=== PATIENT | male | born 1945 | race Caucasian/White ===

== ENCOUNTER → 2023-08-03 16:03 | Outpatient (REF) | payer MEDICARE, SELFPAY | LOC: RAD 16:03 | PROVIDERS: ATTENDING PHYSICIAN Internal Medicine | DX: R60.0 Localized edema (principal) | CPT/HCPCS: 93970 ==

== ENCOUNTER → 2023-08-30 13:23 | Outpatient (REF) | payer MEDICARE, SELFPAY | LOC: RAD 13:23 | PROVIDERS: ATTENDING PHYSICIAN Internal Medicine; REFERRING PHYSICIAN Internal Medicine Transplant Hepatology | DX: I73.9 Peripheral vascular disease, unspecified (principal) | CPT/HCPCS: 93922; 93925 ==

== ENCOUNTER → 2023-10-11 13:36 | Outpatient (REF) | payer MEDICARE, SELFPAY | LOC: RAD 13:36 | PROVIDERS: ATTENDING PHYSICIAN Registered Nurse; FAMILY PHYSICIAN Internal Medicine; REFERRING PHYSICIAN Internal Medicine Transplant Hepatology | DX: R60.0 Localized edema (principal) | CPT/HCPCS: 93970 ==

== ENCOUNTER → 2023-12-18 12:30 | Outpatient (REF) | payer MEDICARE, SELFPAY | LOC: PAVMRI 12:30 | PROVIDERS: ATTENDING PHYSICIAN Surgery Vascular Surgery; FAMILY PHYSICIAN Internal Medicine | DX: R60.0 Localized edema (principal); T82.868S Thrombosis due to vascular prosthetic devices, implants and grafts, sequela | CPT/HCPCS: 72198; A9585 ==

== ENCOUNTER → 2024-10-09 13:40 | Outpatient (REF) | payer MEDICARE, SELFPAY | LOC: DHVS 13:40 | PROVIDERS: ATTENDING PHYSICIAN Surgery Vascular Surgery; FAMILY PHYSICIAN Internal Medicine; OTHER PHYSICIAN Internal Medicine Transplant Hepatology | DX: I73.9 Peripheral vascular disease, unspecified (principal) | CPT/HCPCS: 93922; 93925 ==

== ENCOUNTER 2025-03-07 16:14 | Emergency (ER) | payer MEDICARE, SELFPAY ==
[2025-03-07 16:21] VITALS: BP 128/80
[2025-03-07 20:42] VITALS: BP 141/74
--- NOTE | 2025-03-07 20:52 | ED.GENMED ---
History of Present Illness
General
Chief Complaint: DVT/Possible Blood Clot
Source: patient and spouse
Time Seen by Provider: 03/07/25 20:38
History of Present Illness
History of Present Illness:
79-year-old male presents to the emergency room for evaluation of an area of redness and tenderness noted in the right proximal thigh. No other complaints. Patient has a history of a liver transplant in 2022 at [facility]. Patient recently had a
bit of a bump of his liver enzymes after taking a course of Bactrim for suspected cellulitis. His tacrolimus dose was adjusted and his numbers have improved. Patient denies any chest pain or shortness of breath. He has noted some discomfort when
he walks. Patient's is providing the history. She states patient is somewhat confused and unable to provide details.
Past History
Past History
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
ED Past Surgical History: Appendectomy and Cholecystectomy
Social History
Tobacco: Former smoker
Alcohol: None
Drug: None
Personal:
Living: with family
Phy Exam
Physical Exam
Physical Exam:
General: Awake, Alert, Oriented X3. Appears chronically ill
Vitals: unremarkable
Head: Atraumatic
Eyes: Pupils equal, EOMI
Throat: Airway intact, no exudates
Neck: Trachea midline
Lungs: Clear and equal b/l
Heart: Regular rate, no murmurs
Abd: Soft, Nontender, No pulsatile mass
Neuro: Nonfocal
Skin: Warm, dry, no rash
Extremities: pulses equal b/l, chronic lower extremity edema and chronic venous stasis changes. Area of erythema noted in the midportion of the internal thigh. There is a palpable cord in that area.
Course
Orders/Labs/Results
Orders:
Orders
03/07/25 16:22
US Periph Venous LOWER Ext RT Urgent
Comment:
Reason For Exam: redness and swelling to rle
03/07/25 20:54
Complete Blood Count/With Diff Urgent
Comprehensive Metabolic Panel Urgent
03/07/25 22:51
Apixaban [Eliquis] 5 mg PO NOW STA
03/07/25 22:54
Apixaban [Eliquis] 5 mg PO NOW STA
Abnormal Lab Results
03/07/25
20:54
MCV 96.4 H fL
(80.0-94.0)
MCH 33.0 H pg
(27.0-31.0)
Absolute Monos (auto) 0.7 H 10^3/uL
(0.1-0.6)
Lymphocytes % 16.0 L %
(20.5-51.1)
Chloride 108 H mmol/L
(98-107)
BUN 23 H mg/dl
(9-20)
Glucose 131 H mg/dl
(70-99)
ALT 63 H U/L
(0-50)
03/07/25 20:54
03/07/25 20:54
Vital Signs
Initial and Last Documented VS:
Initial Vital Signs
Temp Pulse Resp Pulse Ox
98.4 F 76 18 96
03/07/25 16:20 03/07/25 16:20 03/07/25 16:20 03/07/25 16:20
Last Documented Vital Signs
Temp Pulse Resp BP Pulse Ox
98 F 76 20 132/74 96
03/07/25 23:54 03/07/25 23:54 03/07/25 23:54 03/07/25 23:54 03/07/25 23:54
MDM/Problems Addressed
Differential Diagnosis Includes:
Superficial thrombus, phlebitis, DVT, abscess
MDM/Problems Addressed:
Ultrasound shows the presence of thrombus in the greater saphenous vein 0.5 cm from the venous junction. No other abnormalities noted on ultrasound. Will check the patient's labs including a CBC and LFTs. If labs are reasonable we will start the
patient on Eliquis. Attempted to discussed the plan with the recruiter coordinator however they state the patient is outside of the window for them to be involved at this point. Since
*Radiology
Radiology exam reviewed: radiology read reviewed
*Pulse Oximetry
SaO2: 96
Patient hypoxic: no
*Critical Care Note
Total Time (30-74mins, 75-104mins- exclusive of procedures): Not Applicable
ED Attending Note
-
Portions of this chart may have been created with voice recognition software.� Occasional wrong word or��sound alike� substitutions may have occurred due to the inherent limitations of voice recognition software.
Discharge Plan
Departure
Patient Disposition: Home (Routine Discharge)
Date of Disposition: 03/07/25
Time of Disposition: 22:58
Patient with high blood pressure during this ER visit?: No
Condition: Good
Discharge Problem:
Thrombophlebitis leg superficial
Instructions: Superficial vein phlebitis and thrombosis
Prescriptions:
New
Eliquis 5 mg tablet
5 mg PO BID Qty: 60 0RF
No Action
prednisone 10 MG tablet
10 mg PO DAILY
ursodiol 300 MG capsule
300 mg PO TID
furosemide 20 MG tablet
20 mg PO TID
prednisone 10 MG tablet
5 mg PO QPM
potassium chloride [Klor-Con M20] 20 MEQ tablet,ER particles/crystals
20 meq PO DAILYPRN PRN (Reason: fluid)
bisacodyl 5 MG tablet,delayed release (DR/EC)
5 mg PO DAILYPRN PRN (Reason: constipation)
lactulose 10 GM/15 ML solution
15 gm PO DAILY
spironolactone 25 MG tablet
25 mg PO BID
Referrals:
Ivy, K., MD [Family Provider, Internal Medicine]
Interventions
Interventions:
*Risk Screen - Suicide Last Done: 03/07/25 20:35
*General Assessment Last Done: 03/07/25 21:01
*Neglect/Abuse Screening Last Done: 03/07/25 20:35
*ED- Fall Risk Assessment Last Done: 03/07/25 20:34
*ED COVID-19 Vaccine History Last Done: 03/07/25 20:34
*ED Influenza Vaccine History Last Done: 03/07/25 20:34
*Nursing Disposition Last Done: 03/07/25 23:54
ED- Cardiac Assessment Last Done: 03/07/25 20:55
ED- Pulmonary Assessment Last Done: 03/07/25 20:55
ED-Peripheral Vascular Assessment Last Done: 03/07/25 20:59
ED-Skin Assessment Last Done: 03/07/25 21:00
Discharge Date and Time
Discharge Date/Time: 03/08/25 00:02
Print Language: MALAY
[2025-03-07 21:00] VITALS: BP 137/79
[2025-03-07 21:03] VITALS: BMI 29.7
[2025-03-07 21:14] LABS: Hematocrit 45.6 % (39.0-52.0); Hemoglobin 15.6 g/dL (13.0-18.0); Mean Corp Hgb Conc. 34.2 g/dL (33.0-37.0); Mean Corpuscular Volume 96.4 fL (80.0-94.0); Nucleated Red Blood Cells % 0 % (-); Platelet Count 200 10^3/uL (130-400); Red Cell Dist. Width 13.7 % (11.5-14.5)
[2025-03-07 21:35] LABS: ALT (SGPT) 63 U/L (0-50); AST (SGOT) 36 U/L (17-59); Albumin 3.9 g/dl (3.5-5.0); Alkaline Phosphatase 76 U/L (38-126); Blood Urea Nitrogen 23 mg/dl (9-20); Calcium 8.8 mg/dl (8.4-10.2); Carbon Dioxide 22 mmol/L (22-30); Chloride 108 mmol/L (98-107); Estimated Creatinine Clearance 51 ml/min; Glucose 131 mg/dl (70-99); Potassium 4.1 mmol/L (3.5-5.1); Sodium 138 mmol/L (135-145); Total Protein 6.5 g/dl (6.3-8.2); eGFR 55.88
[2025-03-07] MEDS: ELIQUIS 5 MG PO (23:31)
[2025-03-07 23:54] VITALS: BP 132/74
== END 2025-03-08 00:02 | disposition home or self-care (01) ==
LOC: EMR 16:14
PROVIDERS: EMERGENCY PHYSICIAN Emergency Medicine; FAMILY PHYSICIAN Internal Medicine
DX: I80.01 Phlebitis and thrombophlebitis of superficial vessels of right lower extremity (principal); I87.8 Other specified disorders of veins; Z79.01 Long term (current) use of anticoagulants; Z94.4 Liver transplant status; Z87.891 Personal history of nicotine dependence
CPT/HCPCS: 99284; 80053; 85025; 93971